=== PATIENT | female | born 1980 | race Caucasian/White ===

== ENCOUNTER → 2020-11-06 09:51 | Outpatient (BNVA) | payer OTHER, SELFPAY | PROVIDERS: Family Provider Family Medicine; Visit Provider Family Medicine | DX: Z01.812 Encounter for preprocedural laboratory examination (principal); Z20.822 Contact with and (suspected) exposure to COVID-19 | CPT/HCPCS: 87635 ==

== ENCOUNTER → 2020-11-20 10:00 | Outpatient (BNVA) | payer OTHER, SELFPAY | PROVIDERS: Family Provider Family Medicine; Visit Provider Nurse Practitioner Family | DX: Z20.822 Contact with and (suspected) exposure to COVID-19 (principal); J06.9 Acute upper respiratory infection, unspecified | CPT/HCPCS: 87635 ==

== ENCOUNTER 2020-11-28 09:35 | Emergency (ER) | payer OTHER, SELFPAY ==
[2020-11-28 09:48] VITALS: BP 112/79; PULSE 86; RESP 18; TEMP 36.9; O2SAT 95; BMI 29.3
--- NOTE | 2020-11-28 10:09 | W.ED.COVID ---
HPI - COVID General: Chief Complaint: COVID symptoms Stated Complaint: SOB, Covid +, Fatique, Time Seen by Provider: 11/28/20 10:06 Triage information: Has fever, cough or shortness of breath. No known COVID + exposure last 14 days History of Present Illness: HPI Narrative: Patient is a 40-year-old female comes to the ED with worsening fatigue, nausea and emesis. Patient tested positive for COVID-19 on November 20 and her symptoms started on November 17. She is on day 12 since onset of symptoms and she still has a dry cough, body aches, shortness of breath, diarrhea, nausea and vomiting. She states the nausea and vomiting started within the last 2 days. She is also complaining of having some dysuria and is concerned she might be developing a UTI. COVID 19 common symptoms: positive fatigue, body aches, nausea, vomiting and diarrhea; negative fever(s), chills, non-productive cough, productive cough, dyspnea, headache(s), throat pain or nasal congestion COVID 19 other sytmptoms: negative chest pain COVID Results: SARS-CoV-2 RNA (RT-PCR) Detected (NOT DETECTED) A 11/20/20 10:00 11/20/20 Nasal/Oral Coronavirus 2019 PCR Not detected 11/06/20 09:51 11/06/20 Review of Systems Const: Reports: body aches and fatigue; Denies: fever(s) or chills Eyes: Denies: change in vision or eye discomfort ENMT: Denies: throat pain, odynophagia, nasal discharge or nasal congestion Card: Denies: chest pain, palpitations, edema, swelling of feet/ankles, dyspnea on exertion or orthopnea Resp: Denies: dyspnea, productive cough or non-productive cough GI: Reports: nausea, vomiting and diarrhea; Denies: abdominal pain, constipation or hematochezia : Reports: dysuria; Denies: flank pain or hematuria Musc: Denies: neck pain, back pain or extremity swelling Skin/Breast: Denies: rash or new lesions Neuro: Denies: headache(s), numbness in extremities or weakness in extremities Physical Exam Const: COMMON NORMALS: no acute distress, patient oriented x3, healthy appearing and alert GENERAL APPEARANCE: cooperative and comfortable HENMT: COMMON NORMALS: normocephalic HEAD & SCALP: normocephalic MOUTH: Normal oral and palatal mucosa present THROAT: posterior oropharynx normal and uvula midline Eye: COMMON NORMALS: Equal, round and reactive pupils present PUPIL: Yes Equal, round and reactive pupils present Neck/C-Spine: COMMON NORMALS: supple GENERAL: Yes normal visual inspection Resp: COMMON NORMALS: normal respiratory effort, No retractions, No use of accessory muscles and clear to auscultation bilaterally EFFORT & INSPECTION: Yes able to speak in complete sentences, No tachypneic, No respiratory distress and No labored AUSCULTATION: clear to auscultation bilaterally Cardio: COMMON NORMALS: regular rate, regular rhythm, S1 normal heart sound present, S2 normal heart sound present, No gallops present (Cardio), No clicks present (Cardio), No murmurs present (Cardio) and Peripheral pulses 2+ throughout RATE: regular rate RHYTHM: regular rhythm HEART SOUNDS: S1 normal heart sound present and S2 normal heart sound present PERIPHERAL PULSES: Peripheral pulses 2+ throughout GI: COMMON NORMALS: Normal to inspection, nondistended, normoactive bowel sounds present, Soft to palpation, non-tender and no masses PALPATION: Yes Soft to palpation : COMMON NORMALS: Yes no CVA tenderness BLADDER/KIDNEY EXAM: Yes no CVA tenderness Back/Pelvis: COMMON NORMALS: no CVA tenderness Extremity: COMMON NORMALS: normal to inspection Neuro: COMMON NORMALS: patient oriented x3 and moves all extremities SENSORIUM/ORIENTATION: Yes alert Skin: GENERAL SKIN EXAM: dry skin Course Reevaluation(s): Reevaluation #1: After patient received IV fluids and Zofran she said her symptoms have improved greatly and she is feeling a lot better. Time: 14:10 Vital Signs: Vital signs: Vital Signs Temperature 98.5 F 11/28/20 09:48 Pulse Rate 68 11/28/20 15:24 Respiratory Rate 18 11/28/20 15:24 Blood Pressure 106/75 11/28/20 15:24 Pulse Oximetry 97 11/28/20 15:24 MDM - COVID MDM Narrative: Medical decision making narrative: Patient is a 40-year-old female who was diagnosed with COVID-19 and developed nausea and vomiting over the past couple days. Patient's vitals are stable and her O2 saturation is above 95% the whole time she is here in the ED and she is showing no signs of any labored breathing. Lungs are clear to auscultation bilaterally. Patient has some mildly elevated liver enzymes with an AST of 116 and ALT of 157. The rest of labs were unremarkable. Chest x-ray showed some signs of viral COVID-19 pneumonia. Patient was given IV fluids, Decadron, Toradol and Zofran and her symptoms greatly improved. Patient stable for discharge home patient diagnosed with COVID-19 and transaminitis. She was discharged home with a prescription for Zofran to help with nausea. Return to ED precautions given. Follow-up with PCP about 5 days to be reevaluated and to have liver enzymes rechecked. Patient understood agree with plan. Lab Data: Labs: Lab Results 11/28/20 11/28/20 11/28/20 Range/Units 12:30 12:30 13:55 WBC 4.2 (4.0-10.0) 10^3/ uL RBC 5.40 H (4.1-5.3) 10^6/u L Hgb 15.4 H (11.5-15.3) g/dL Hct 47.3 H (37.0-47.0) % MCV 87.6 (81-99) fL MCH 28.5 (28.0-34.0) pg MCHC 32.6 (30.0-36.0) g/dL RDW 13.3 (12.1-15.1) % Plt Count 142 (130-400) 10^3/c mm MPV 10.0 (7.4-10.4) fL Neut % (Auto) 69.0 % Lymph % (Auto) 23.5 % [place] % (Auto) 7.1 % Eos % (Auto) 0.2 % Baso % (Auto) 0.0 % Neut # (Auto) 2.91 (1.8-7.7) 10^3/u L Lymph # (Auto) 1.0 (0.8-4.8) 10^3/u L [place] # (Auto) 0.3 (0.2-0.9) 10^3/u L Eos # (Auto) 0.0 (0.0-0.8) 10^3/u L Baso # (Auto) 0.0 (0.0-0.1) 10^3/u L Nucleated RBC % (a uto) 0 % Nucleated RBCs # 0.0 /100WBC Sodium 139 (136-145) mmol/L Potassium 4.2 (3.5-5.1) mmol/L Chloride 103 (98-107) mmol/L Carbon Dioxide 25 (22-29) mmol/L Anion Gap 15.2 (5-19) BUN 11 (6-20) mg/dL Creatinine 0.7 (0.5-0.9) mg/dL GFR Calculation 93.6 (90-130) mL/min Glucose 72 (65-115) mg/dL Calculated Osmolal ity 286 (285-295) mOsm/k g Calcium 8.1 L (8.5-10.5) mg/dL Total Bilirubin 0.3 (0.15-1.2) mg/dL AST 116 H (0-32) U/L ALT 157 H (0-33) U/L Alkaline Phosphata se 89 (35-105) IU/L Total Protein 6.7 (6.6-8.7) g/dL Albumin 4.3 (3.5-5.2) g/dL Globulin 2.4 (1.3-4.6) g/dL Lipase 61 H (13-60) U/L Urine Color (Yellow) Urine Appearance (CLEAR) Urine pH (5-7) Ur Specific Gravit y (1.005-1.030) Urine Protein (Negative) Urine Glucose (UA) (Normal) Urine Ketones (Negative) Urine Blood (Negative) Urine Nitrate (Negative) Urine Bilirubin (Negative) Urine Urobilinogen (Negative) mg/dL Ur Leukocyte Zeenat ase (Negative) Urine RBC (0-2) /hpf Urine WBC (0-5) /hpf Ur Squamous Epith Cells (0-5) /hpf Amorphous Sediment Urine Bacteria (NONE) /hpf Urine Mucus /hpf Urine HCG, Qual Negative (Negative) 11/28/20 Range/Units 13:55 WBC (4.0-10.0) 10^3/ uL RBC (4.1-5.3) 10^6/u L Hgb (11.5-15.3) g/dL Hct (37.0-47.0) % MCV (81-99) fL MCH (28.0-34.0) pg MCHC (30.0-36.0) g/dL RDW (12.1-15.1) % Plt Count (130-400) 10^3/c mm MPV (7.4-10.4) fL Neut % (Auto) % Lymph % (Auto) % [place] % (Auto) % Eos % (Auto) % Baso % (Auto) % Neut # (Auto) (1.8-7.7) 10^3/u L Lymph # (Auto) (0.8-4.8) 10^3/u L [place] # (Auto) (0.2-0.9) 10^3/u L Eos # (Auto) (0.0-0.8) 10^3/u L Baso # (Auto) (0.0-0.1) 10^3/u L Nucleated RBC % (a uto) % Nucleated RBCs # /100WBC Sodium (136-145) mmol/L Potassium (3.5-5.1) mmol/L Chloride (98-107) mmol/L Carbon Dioxide (22-29) mmol/L Anion Gap (5-19) BUN (6-20) mg/dL Creatinine (0.5-0.9) mg/dL GFR Calculation (90-130) mL/min Glucose (65-115) mg/dL Calculated Osmolal ity (285-295) mOsm/k g Calcium (8.5-10.5) mg/dL Total Bilirubin (0.15-1.2) mg/dL AST (0-32) U/L ALT (0-33) U/L Alkaline Phosphata se (35-105) IU/L Total Protein (6.6-8.7) g/dL Albumin (3.5-5.2) g/dL Globulin (1.3-4.6) g/dL Lipase (13-60) U/L Urine Color Yellow (Yellow) Urine Appearance Clear (CLEAR) Urine pH 6 (5-7) Ur Specific Gravit y 1.010 (1.005-1.030) Urine Protein Trace (Negative) Urine Glucose (UA) Norm (Normal) Urine Ketones 2+ H (Negative) Urine Blood Neg (Negative) Urine Nitrate Negative (Negative) Urine Bilirubin Neg (Negative) Urine Urobilinogen Norm (Negative) mg/dL Ur Leukocyte Zeenat ase Negative (Negative) Urine RBC None (0-2) /hpf Urine WBC 0-4 H (0-5) /hpf Ur Squamous Epith Cells 5-10 H (0-5) /hpf Amorphous Sediment Not Reportable Urine Bacteria Trace (NONE) /hpf Urine Mucus Trace /hpf Urine HCG, Qual (Negative) Imaging Data: CXR: Attestation: I personally reviewed and interpreted this imaging study as follows: Radiologist's impression: [address] [address] XRay Report Signed Patient: Kimberly Gandhi Unit #: [id number] : [id number] Age/Sex: 40 / F ADM Date: 11/28/20 Loc: ER Room/Bed: Attending Dr: Ordering Provider/Ordering MD: Mark Mccord Date of Service: 11/28/20 Procedure(s): XR chest 1V portable [id number] Accession Number(s): [id number] Report Number: [id number] PROCEDURE INFORMATION: Exam: XR Chest Exam date and time: 11/28/2020 10:16 AM Age: 40 years old Clinical indication: Cough and shortness of breath. Breast augmentation. COVID. TECHNIQUE: Imaging protocol: XR of the chest. Views: 1 view. COMPARISON: No relevant prior studies available. FINDINGS: Lungs: There are patchy opacities in the mid to lower chest bilaterally compatible with COVID pneumonia. Pleural spaces: No pleural effusion.; No pneumothorax. Heart/Mediastinum: The cardiac silhouette is unremarkable. No gross evidence of pneumomediastinum. Bones/joints: No gross fracture. XR/XR chest 1V portable [id number] IMPRESSION: Patchy opacities in the mid to lower chest bilaterally compatible with COVID pneumonia. Dictated By: Nishant Truong Signed By: Nishant Truong Signed Date/Time: 11/28/20 1230 DD/ 1228 COVID Results: SARS-CoV-2 RNA (RT-PCR) Detected (NOT DETECTED) A 11/20/20 10:00 11/20/20 Nasal/Oral Coronavirus 2019 PCR Not detected 11/06/20 09:51 11/06/20 Discharge Plan Discharge Patient Disposition: Home Clinical Impression: COVID-19, Transaminitis Condition: Stable Prescriptions: New ondansetron 4 mg tablet,disintegrating 4 mg PO Q8H PRN (Reason: nausea and vomiting) Qty: 15 RF: 0 No Action No Known Home Medications RF: 0 Discharge Orders: Discharge ED (Routine); Ordered 11/28/20 Ordered By: Mark Mccord Referrals: Eliezer Cleveland [Primary Care Provider] - Discharge Diet: Regular Discharge Activity: Increase activity as tolerated Patient Instructions: Viral Syndrome (ED) Activity Restrictions/Additional Instructions: Follow-up with medical provider as directed in 3 to 5 days for reevaluation. Also have Dr. danielsoneck liver enzyme labs at next appointment as well. Take medications as prescribed. Drink plenty fluids and stay hydrated. Take [id number] Tylenol or Motrin for any fever or pain. Return to the ER or your medical provider if condition worsens. Please read and understand discharge instructions. Thank you for choosing [facility] for your healthcare needs today. Please realize this is an emergency room and that we are providing you with a medical screening exam and this may not be complete and all inclusive of all the testing and or work up that you may need to determine your ailment or severity of your illness. It is very important that you follow up as instructed or that you return to the Emergency Department should you have concerns or if your condition changes or worsens in any way. Coding Level of Care Code ED [employer] for Konrad Mayfield Exam Comprehensive
--- NOTE | 2020-11-28 10:16 | XRR_ITS ---
PROCEDURE INFORMATION: Exam: XR Chest Exam date and time: 11/28/2020 10:16 AM Age: 40 years old Clinical indication: Cough and shortness of breath. Breast augmentation. COVID. TECHNIQUE: Imaging protocol: XR of the chest. Views: 1 view. COMPARISON: No relevant prior studies available. FINDINGS: Lungs: There are patchy opacities in the mid to lower chest bilaterally compatible with COVID pneumonia. Pleural spaces: No pleural effusion.; No pneumothorax. Heart/Mediastinum: The cardiac silhouette is unremarkable. No gross evidence of pneumomediastinum. Bones/joints: No gross fracture. XR/XR chest 1V portable [id number] IMPRESSION: Patchy opacities in the mid to lower chest bilaterally compatible with COVID pneumonia.
[2020-11-28 12:30] VITALS: O2SAT 98
[2020-11-28 12:31] VITALS: BP 118/87; PULSE 83; RESP 18; O2SAT 95
[2020-11-28] MEDS: sodium chloride 0.9% 1,000 ML 999 ML IV (12:45)
[2020-11-28 12:53] LABS: Eosinophils % 0.2 %; Hematocrit 47.3 % (37.0-47.0); Hemoglobin 15.4 g/dL (11.5-15.3); Lymphocytes % 23.5 %; Mean Corpuscular HGB Conc 32.6 g/dL (30.0-36.0); Mean Corpuscular Hemoglobin 28.5 pg (28.0-34.0); Mean Corpuscular Volume 87.6 fL (81-99); Monocytes # 0.3 10^3/uL (0.2-0.9); Monocytes % 7.1 %; Neutrophils # 2.91 10^3/uL (1.8-7.7); Nucleated Red Blood Cells % 0 %; Platelet Count 142 10^3/cmm (130-400); Red Cell Distribution Width 13.3 % (12.1-15.1); White Blood Count 4.2 10^3/uL (4.0-10.0)
[2020-11-28 13:06] LABS: Alanine Aminotransferase 157 U/L (0-33); Albumin Level 4.3 g/dL (3.5-5.2); Alkaline Phosphatase 89 IU/L (35-105); Anion Gap 15.2 (5-19); Aspartate Amino Transferase 116 U/L (0-32); Blood Urea Nitrogen 11 mg/dL (6-20); Calcium 8.1 mg/dL (8.5-10.5); Carbon Dioxide 25 mmol/L (22-29); Chloride 103 mmol/L (98-107); Globulin 2.4 g/dL (1.3-4.6); Glomerular Filtration Rate 93.6 mL/min (90-130); Glucose 72 mg/dL (65-115); Lipase 61 U/L (13-60); Osmolality Calculated 286 mOsm/kg (285-295); Potassium 4.2 mmol/L (3.5-5.1); Sodium 139 mmol/L (136-145); Total Bilirubin 0.3 mg/dL (0.15-1.2); Total Protein 6.7 g/dL (6.6-8.7)
[2020-11-28 14:04] VITALS: BP 126/79; PULSE 80; RESP 18; O2SAT 95
[2020-11-28] MEDS: ondansetron 2 mg/ML SDV 2 mL 4 MG IVP (14:14)
[2020-11-28] MEDS: ketorolac 30 mg/mL INJ IVP (14:14)
[2020-11-28 14:30] LABS: Bilirubin Urine Neg (Negative); Blood Urine Neg (Negative); Glucose Urine UA Norm (Normal); Ketones Urine 2+ (Negative); Leukocyte Esterase Urine Negative (Negative); Nitrate Urine Negative (Negative); Protein Urine Trace (Negative); Urine Appearance Clear (CLEAR); Urine Color Yellow (Yellow); Urobilinogen Urine Norm (Negative); pH Urine 6 (5-7)
[2020-11-28 14:31] LABS: Bacteria Urine TRACE /hpf; Mucus Urine TRACE /hpf; WBC Urine 0-4 /hpf (0-5)
[2020-11-28 14:32] LABS: Add Urine Culture? No
[2020-11-28] MEDS: dexamethasone 10 mg/mL INJ IVP (15:22)
[2020-11-28 15:24] VITALS: BP 106/75; PULSE 68; RESP 18; O2SAT 97
== END 2020-11-28 15:25 | disposition home or self-care (01) ==
PROVIDERS: Emergency Provider Physician Assistant; PCP Family Medicine
DX: U07.1 COVID-19 (principal); R74.01 Elevation of levels of liver transaminase levels
CPT/HCPCS: 71045; 80053; 81001; 81025; 83690; 85025; 96361; 96374; 96375; 99284; J1100; J1885; J2405; J7030